=== PATIENT | male | born 1975 | race Caucasian/White ===

== ENCOUNTER 2019-08-04 23:41 | Emergency (ER) | payer OTHER ==
[2019-08-05 02:54] LABS: APPEARANCE,URINE CLEAR; BILIRUBIN,URINE NEGATIVE (NEGATIVE); COLOR,URINE YELLOW; GLUCOSE, URINE NEGATIVE (NEGATIVE); KETONES,URINE TRACE mg/dL (NEGATIVE); LEUKOCYTE ESTERASE,URINE NEGATIVE (NEGATIVE); NITRITE,URINE NEGATIVE (NEGATIVE); PROTEIN,URINE 30 mg/dL (NEGATIVE); URINE SPECIFIC GRAVITY 1.027
[2019-08-05 02:59] LABS: ABSOLUTE LYMPHOCYTES (AUTO) 1.1 10^3/uL (0.5-4.7); ABSOLUTE MONOCYTES (AUTO) 0.4 10^3/uL (0.1-1.4); ABSOLUTE NEUT (AUTO) 8.6 10^3/uL (1.7-8.2); BASOPHILS % (AUTO) 0.4 % (0-2); EOSINOPHILS % (AUTO) 0.1 % (0-6); HEMATOCRIT 40.8 % (37.9-51.0); HEMOGLOBIN 14.5 g/dL (13.5-17.0); MEAN CORPUSCULAR HEMOGLOBIN 33.3 pg (27.0-33.4); MEAN CORPUSCULAR HGB CONC 35.5 g/dL (32.0-36.0); MEAN CORPUSCULAR VOLUME 94 fl (80-97); MONOCYTES % (AUTO) 4.3 % (3-13); PLATELET COUNT 225 10^3/uL (150-450); RED BLOOD COUNT 4.35 10^6/uL (4.35-5.55); RED CELL DISTRIBUTION WIDTH 13.4 % (11.5-14.0); SEGMENTED NEUTROPHILS % (AUTO) 84.2 % (42-78); TOTAL CELLS COUNTED % (AUTO) 100 %; WHITE BLOOD COUNT 10.2 10^3/uL (4.0-10.5)
--- NOTE | 2019-08-05 03:08 | ER Document Report ---
ED GI/ - General Chief Complaint: Flank Pain Stated Complaint: FLANK PAIN Time Seen by Provider: 08/05/19 02:44 Notes: Patient is a 44-year-old male who presents to the emergency department with a chief complaint of right flank pain that radiates down to his right lower quadrant. Patient states that his symptoms started around 1999 last night. States that he ended up taking 1 of his 's Percocets to help with the pain. States that that helped and feels much better. Patient is visiting from outside the [facility]. Denies any fever, cough, or any COVID-19 symptoms. - Related Data Allergies/Adverse Reactions: ibuprofen Allergy (Verified 08/05/19 00:15) Penicillins Allergy (Verified 08/05/19 00:15) Past Medical History - General Information source: Patient - Social History Smoking Status: Never Smoker Frequency of alcohol use: Social Drug Abuse: None Family History: Reviewed & Not Pertinent Patient has homicidal ideation: No Review of Systems - Review of Systems Notes: REVIEW OF SYSTEMS: CONSTITUTIONAL : Denies recent illness. Denies recent unintentional weight loss. Denies fever, chills, or sweats. EENT: Denies eye, ear, throat, or mouth pain, discharge, or symptoms. Denies nasal or sinus congestion. CARDIOVASCULAR: Denies chest pain. RESPIRATORY: Denies shortness of breath, cough, congestion, difficulty breathing, or wheezing. GASTROINTESTINAL: Denies nausea, vomiting, and diarrhea. Denies abdominal pain. Denies constipation. GENITOURINARY: Denies difficulty urinating, burning, blood in urine, urgency or frequency. MUSCULOSKELETAL: See HPI. Denies joint pain or swelling. SKIN: Denies rash, itchiness, or lesions HEMATOLOGIC : Denies easy bruising or bleeding. LYMPHATIC: Denies swollen, painful, enlarged glands. NEUROLOGICAL: Denies no numbness or tingling denies weakness. Denies headache. Denies altered mental status. Denies alteration in speech. PSYCHIATRIC: Denies stress, anxiety, alteration in sleep patterns, or depression. All other systems reviewed and negative. Physical Exam - Vital signs Vitals: Temp Pulse Resp BP Pulse Ox 97.5 F 73 20 122/91 H 100 08/05/19 00:00 08/05/19 00:00 08/05/19 00:00 08/05/19 00:00 08/05/19 00:00 - Notes Notes: PHYSICAL EXAMINATION: GENERAL: Appears well, healthy, well-nourished, no acute distress. HEAD: Normocephalic, atraumatic. EYES: PERRL, conjunctiva normal, all extraocular movements intact, sclera nonicteric ENT: Moist mucous membranes. NECK: Supple, no noticeable swelling, redness, rash. Normal range of motion. LUNGS: Equal breath sounds bilaterally and clear to auscultation. No wheezes rales or rhonchi. CARDIOVASCULAR: S1-S2, regular rate, regular rhythm. Radial pulses 2+, normal. ABDOMEN: Normoactive bowel sounds. Soft, nontender, no guarding, no rebound tenderness, and no masses palpated. EXTREMITIES: Normal strength and range of motion, no pitting or edema. No cyanosis. NEUROLOGICAL: Moves all extremities upon command. Strength 5/5 in all extremities. PSYCH: Normal mood, normal affect. SKIN: Warm, dry. No rash, lesions, ulcerations noted. Normal skin turgor. BACK: Slight right lower back tenderness. Course - Re-evaluation Re-evalutation: 08/05/19 04:08 Patient has a 3.7 mm right UVJ calculi with hydronephrosis and hydroureter ureter. He also has a nonobstructing 2 mm left renal calculi. Patient will be started on Flomax. Patient is nontoxic in appearance. Urinalysis shows a small amount of blood and casts. No evidence of an infected kidney stone. Hematology is unremarkable. Creatinine is only mildly elevated. Patient is able to tolerate oral fluids. Encouraged him to drink plenty of fluids. He will follow-up with a urologist in [facility]. Follow-up precautions were given. Verbal discharge instructions were given to the patient. They verbalized understanding. They are stable for discharge. - Vital Signs Vital signs: Temp Pulse Resp BP Pulse Ox 97.7 F 66 18 129/66 H 100 08/05/19 04:54 08/05/19 04:54 08/05/19 04:54 08/05/19 04:54 08/05/19 04:54 - Laboratory Result Diagrams: 08/05/19 02:25 08/05/19 02:25 Laboratory results interpreted by me: 08/05/19 08/05/19 08/05/19 02:25 02:25 02:25 Lymph % (Auto) 11.0 L Absolute Neuts (auto) 8.6 H Seg Neutrophils % 84.2 H Sodium 136.9 L Creatinine 1.28 H Glucose 186 H Urine Protein 30 H Urine Ketones TRACE H Urine Blood SMALL H Urine Urobilinogen 2.0 H Urine Ascorbic Acid 40 H Discharge - Discharge Clinical Impression: Kidney stone on right side, Hydroureter Hydronephrosis Qualifiers: 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 If you continue to have pain for greater than one week or your pain is not controlled w ith the pain medications that you have been sent home with you need to return to the emergency department. Please also return if you develop fever, persistent vomiting, or any other symptoms that are concerning to you. You should take the [place] if you are only in extreme pain. Drink plenty of fluids. You are also been sent home with a medication called Flomax to help pass the stone. You've been given Zofran to assist with nausea. Please follow-up with urology you return home. Try to call them and make an appointment as soon as possible. Prescriptions: Hydrocodone/Acetaminophen [[place] 5-325 mg Tablet] 1 tab PO Q6HP PRN #15 tablet PRN Reason: Tamsulosin HCl [Flomax 0.4 mg Cap.sr] 0.4 mg PO DAILY #7 cap.sr.24h Ondansetron [Zofran Odt 4 mg Tablet] 1 - 2 tab PO Q4H PRN #15 tab.rapdis PRN Reason: For Nausea/Vomiting
[2019-08-05 03:10] LABS: ALBUMIN 4.4 g/dL (3.5-5.0); ALKALINE PHOSPHATASE 112 U/L (38-126); ANION GAP 9 (5-19); ASPARTATE AMINO TRANSFERASE 23 U/L (17-59); BILIRUBIN,TOTAL 0.5 mg/dL (0.2-1.3); BLOOD UREA NITROGEN 18 mg/dL (7-20); CALCIUM 9.9 mg/dL (8.4-10.2); CARBON DIOXIDE 25 mmol/L (22-30); CHLORIDE 103 mmol/L (98-107); GLUCOSE 186 mg/dL (75-110); POTASSIUM 4.1 mmol/L (3.6-5.0); TOTAL PROTEIN 7.1 g/dL (6.3-8.2)
--- NOTE | 2019-08-05 04:00 | RADIOLOGY REPORT (SQ) ---
EXAM DESCRIPTION: CT ABDOMEN PELVIS WITHOUT IV CONTRAST COMPLETED DATE/TME: 08/05/2019 02:59 CLINICAL HISTORY: 44 years, Male, Right flank pain COMPARISON: None. TECHNIQUE: [id number] Images stored on PACS. All CT scanners at this facility use dose modulation, iterative reconstruction, and/or weight based dosing when appropriate to reduce radiation dose to as low as reasonably achievable (ALARA). [facility]: Dose Right [facility]: CareDose [facility]: Dose Right [facility]: Teradose 4D [facility]: Simpli[employer] LIMITATIONS: None. FINDINGS: The visualized lung bases are unremarkable. Osseous structures are grossly intact. Limited evaluation of the liver, spleen, adrenal glands, pancreas, are unremarkable. The gallbladder is present. Normal appendix. Nonobstructing 2 mm left renal calculus. Mild right hydronephrosis and hydroureter secondary to a 3.7 mm right UVJ calculus. Large amount of stool in the colon. No gross evidence for bowel obstruction. No free air or free fluid. IMPRESSION: Mild right hydroureteronephrosis secondary to a 3.7 mm right UVJ calculus. Nonobstructing 2 mm left renal calculus.. TECHNICAL DOCUMENTATION: Quality ID # [id number]: Final reports with documentation of one or more dose reduction techniques (e.g., Automated exposure control, adjustment of the mA and/or kV according to patient size, use of iterative reconstruction technique) copyright 2011 [employer]- All Rights Reserved
[2019-08-05] MEDS ORDERED: HYDROCODONE/ACETAMINOPHEN 5-325 MG TABLET PO ONE (04:19)
[2019-08-05] MEDS ORDERED: TAMSULOSIN HCL 0.4 MG CAP.SR.24H PO ONE (04:19)
[2019-08-05 04:57] VITALS: BP 129/66
== END 2019-08-05 04:57 | disposition home or self-care (01) ==
LOC: ER 23:41
DX: N13.2 Hydronephrosis with renal and ureteral calculous obstruction (principal); R31.9 Hematuria, unspecified; Q62.11 Congenital occlusion of ureteropelvic junction; Z88.8 Allergy status to other drugs, medicaments and biological substances; Z88.0 Allergy status to penicillin
CPT/HCPCS: 36415; 74176; 80053; 81001; 83690; 85025; 99284